=== PATIENT | male | born 1960 | race Caucasian/White ===

== ENCOUNTER 2020-12-20 12:48 | Day surgery (SDC) | payer OTHER ==
[2020-12-20] MEDS ORDERED: Fentanyl 100 MCG/2 ML VIAL ONE ×3 (13:19→19:22)
[2020-12-20] MEDS ORDERED: Ondansetron PF 4 MG/2 ML Vial ONE ×3 (13:19→17:46)
[2020-12-20 13:35] LABS: #Eosinphils 0.5 thou/uL (0.0-0.7); #Lymphocytes 1.3 thou/uL (1.20-3.40); #Monocytes 0.6 thou/uL (0.11-0.59); %Basophils 0.5 % (0.0-1.0); %Eosinophils 5.1 % (0.0-10.0); %Lymphocytes 13.4 % (21.0-51.0); %Neutrophils 75.1 % (42.0-75.0); Mean Corpuscular HGB CONC 35.4 g/dL (32.0-36.0); Mean Corpuscular Hemoglobin 31.1 pg (27.0-31.0); Mean Platelet Volume 7.4 fL (7.4-10.4); Platelet Count 242 thou/uL (130-400); RBC Distribution Width 11.9 % (11.5-14.5); Red Blood Cell (RBC) Count 5.45 mill/uL (4.70-6.10); White Blood Cell (WBC) Count 9.4 thou/uL (4.8-10.8)
[2020-12-20 13:55] LABS: ALT (SGPT) 26 U/L (8-55); AST (SGOT) 23 U/L (5-34); Albumin 4.4 g/dL (3.5-5.0); Alkaline Phosphatase 76 U/L (40-110); Anion Gap 17 mmol/L (10-20); BUN (Urea Nitrogen) 17 mg/dL (8.4-25.7); Bilirubin, Total 0.7 mg/dL (0.2-1.2); Calc. Creatinine Clearance 0 mL/min (70-130); Calcium 9.9 mg/dL (7.8-10.44); Carbon Dioxide 18 mmol/L (22-29); Chloride 107 mmol/L (98-107); Globulin 3.3 g/dL (2.4-3.5); Glucose 112 mg/dL (70-105); Lipase 38 U/L (8-78); Potassium 3.6 mmol/L (3.5-5.1); Protein, Total 7.7 g/dL (6.0-8.3); Sodium 138 mmol/L (136-145)
[2020-12-20] MEDS ORDERED: Ketorolac Tromethamine 30 MG/ML VIAL ONE (14:23)
[2020-12-20] MEDS ORDERED: HYDROmorphone 0.5 MG/0.5 ML SYRINGE ONE ×2 (14:59→15:21)
[2020-12-20 16:32] LABS: Bilirubin Negative (Negative); Blood, Urine Negative (Negative); Clarity Clear (Clear); Glucose, Urine (Dipstick) Normal (Negative); Ketone, Urine Trace mg/dL (Negative); Leukocyte Negative Leu/uL (Negative); Nitrite Negative (Negative); Protein, Urine (Dipstick) 20 mg/dL (Neg-Trace); Specific Gravity, Urine 1.025 (1.002-1.036); Urobilinogen Normal mg/dL (Less than 2); pH, Urine 6.5 (5.0-9.0)
[2020-12-20] MEDS ORDERED: Midazolam HCl 2 mg/2 ml Vial ONE (17:15)
[2020-12-20] MEDS ORDERED: Dexamethasone 20 MG/5 ML VIAL ONE (17:46)
[2020-12-20] MEDS ORDERED: Rocuronium Bromide 10 MG/ML (10ML VIAL) ONE (17:46)
[2020-12-20] MEDS ORDERED: Lidocaine 1% PF 5 ML VIAL ONE (17:46)
[2020-12-20] MEDS ORDERED: Glycopyrrolate 0.2 MG/ML 5 ML SYRINGE ONE (17:46)
[2020-12-20] MEDS ORDERED: PROPOFOL 200 MG/20 ML VIAL ONE (17:46)
[2020-12-20] MEDS ORDERED: Lidocaine 1% w/Epinephrine 1:100K 20 ML VIAL ONE (18:05)
[2020-12-20] MEDS ORDERED: Bupivacaine 0.25% HCL 30 ML VIAL ONE (18:05)
[2020-12-20] MEDS ORDERED: traMADol HCl 50 MG TAB ONE (19:41)
== END 2020-12-20 20:25 | disposition home or self-care (01) ==
LOC: ERS 12:48 → SDC/OP 18:21
PROVIDERS: ATTEND Surgery
PROC: 0FT44ZZ Resection of Gallbladder, Percutaneous Endoscopic Approach (ICD-10-PCS; principal; 2020-12-20)
DX: K80.12 Calculus of gallbladder with acute and chronic cholecystitis without obstruction (principal); I10 Essential (primary) hypertension; E78.5 Hyperlipidemia, unspecified; K21.9 Gastro-esophageal reflux disease without esophagitis; N20.0 Calculus of kidney; Z79.899 Other long term (current) drug therapy; Z91.040 Latex allergy status
CPT/HCPCS: 36415; 74176; 76705; 80053; 81003; 83690; 84484; 85025; 88304; 93005; 96372; 96374; 96375; 96376; J0500; J0690; J1100; J1170; J1885; J2250; J2405; J2704; J3010; S0020

== ENCOUNTER 2021-07-19 14:40 | Outpatient (CLI) | payer OTHER | END 2021-07-19 14:41 | disposition home or self-care (01) | LOC: BICRAD 14:40 | PROVIDERS: ATTEND Family Medicine | DX: R53.82 Chronic fatigue, unspecified (principal); R59.0 Localized enlarged lymph nodes; R22.2 Localized swelling, mass and lump, trunk; R61 Generalized hyperhidrosis | CPT/HCPCS: 71046 ==